=== PATIENT | female | born 1990 | race Caucasian/White ===

== ENCOUNTER 2016-04-23 18:10 | Emergency (ER) ==
[2016-04-23 18:14] VITALS: BP 150/86; TEMP 98.5; BMI 30.2
[2016-04-23] MEDS ORDERED: FLUORETS OP ONE (18:18)
[2016-04-23] MEDS ORDERED: EYE-STREAM OP ONE (18:18)
[2016-04-23] MEDS ORDERED: TETRACAINE 0.5% UNIT-DOSE OP ONE (18:18)
[2016-04-23] MEDS ORDERED: GENTAK OPTH OINT OP STA (18:23)
[2016-04-23] MEDS ORDERED: NORCO 5-325 PO STA (18:26)
--- NOTE | 2016-04-23 18:26 | ED.PDOC ---
General ED Provider: Dr. BIRD PAINTER-ER Chief Complaint: Eye Problem Stated Complaint: i got poked in the eye Time Seen by Physician: 18:15 Mode of Arrival: Walk-In Information Source: Patient Exam Limitations: No limitations Primary Care Provider: NOE LYNN Nursing and Triage Documentation Reviewed and Agree: Yes EENT Complaint Exam - Eye Complaint/Exam Onset/Duration: 2 hrs Symptoms Are: Still present Timing: Constant Initial Severity: Mild Current Severity: Mild Location: Discreet, Right Character: Reports: Dull, Throbbing Aggravating: Reports: Blinking Alleviating: Reports: None Associated Signs and Symptoms: Reports: Photophobia, Clear drainage. Denies: Purulent drainage, Vision impairment, Fever, Swelling Eye Surgical History: Reports: None Penetrating Injury Risk Factors: None Globe Rupture Risk Factors: None Acute Glaucoma Risk Factors: None Optic Artery Occlusion Risk Factors: None Visual Acuity Right Eye: 20/20 Visual Acuity Left Eye: 20/25 Visual Field: Normal Extraocular Movement: Normal Orbit Findings: Normal Globe Findings: Intact Lid Findings: Normal Corneal Findings: Clear Fluorescein Uptake: Yes Fundi: Normal Slit Lamp Used: No Differential Diagnoses: Corneal Abrasion Review of Systems - Review Of Systems Constitutional: Reports: No symptoms Eyes: Reports: Pain, Photophobia Ears, Nose, Mouth, Throat: Reports: No symptoms Respiratory: Reports: No symptoms Cardiac: Reports: No symptoms GI: Reports: No symptoms : Reports: No symptoms Musculoskeletal: Reports: No symptoms Skin: Reports: No symptoms Neurological: Reports: No symptoms Endocrine: Reports: No symptoms Hematologic/Lymphatic: Reports: No symptoms All Other Systems: Reviewed and Negative Past Medical History - Past Medical History Endocrine: Reports: Unknown Cardiovascular: Reports: Unknown Respiratory: Reports: Unknown Hematological: Reports: Unknown Gastrointestinal: Reports: Unknown Genitourinary: Reports: Unknown Neuro/Psych: Reports: Unknown Musculoskeletal: Reports: Unknown Cancer: Reports: Unknown Last Menstrual Period: 04/08/16 - Surgical History General Surgical History: Reports: Unknown - Family History Family History: Reports: Unknown - Social History Smoking Status: Never smoker Hx Substance Use: No Alcohol Screening: None Physical Exam - Physical Exam Appearance: Well-appearing, No pain distress, Well-nourished Pain Distress: Mild Eyes: APOLONIA, EOMI, Conjunctiva inflammed ENT: Ears normal, Nose normal, Oropharynx normal Neck: Supple Respiratory: Airway patent Cardiovascular: RRR, Pulses normal, No rub, No murmur GI/: Soft, Nontender, No masses, Bowel sounds normal, No Organomegaly Musculoskeletal: Normal strength Skin: Warm, Dry, Normal color Neurological: Sensation intact, Motor intact, Reflexes intact, Cranial nerves intact, Alert, Oriented Psychiatric: Affect appropriate, Mood appropriate Procedures - Eye Procedure Tetracaine Drops Administered: Yes Depth: Superficial (corneal abrasion noted) Foreign Body Completely Removed: No Eye Irrigated: Yes Critical Care Note - Critical Care Note Total Time (mins): 0 Course - Course Orders, Labs, Meds: Orders Category Date Time Status Eye Irrigation [ED EYE IRRIGATION] .ONCE EMERGENCY 04/23/16 18:23 Active Eye [ED EYE PATCH] .ONCE EMERGENCY 04/23/16 18:23 Active Balanced Salt Solution [Eye-Stream] MEDS 04/23/16 18:18 Discontinued 1 bottle OP .STK-MED ONE Fluorescein Sodium [Fluorets] MEDS 04/23/16 18:18 Discontinued 1 strip OP .STK-MED ONE Gentamicin Sulfate [Gentak Opth Oint] MEDS 04/23/16 18:23 Discontinued 1 applic OP ONCE STA Tetracaine HCl/Pf [Tetracaine 0.5% Unit-Dose] MEDS 04/23/16 18:18 Discontinued 1 drop OP .STK-MED ONE Medications Discontinued Medications Generic Name Dose Route Start Last Admin Trade Name Freq PRN Reason Stop Dose Admin Gentamicin Sulfate 1 applic 04/23/16 18:23 Gentak Opth Oint OP 04/23/16 18:24 ONCE STA Vital Signs: Temp Pulse Resp BP Pulse Ox 04/23/16 18:11 98.5 F 76 16 150/86 H 98 Departure - Departure Time of Disposition: 18:28 Disposition: HOME SELF-CARE Discharge Problem: Corneal abrasion Qualifiers: Encounter type: initial encounter Laterality: right Qualifier Code: (S05.01XA) Injury of conjunctiva and corneal abrasion without foreign body, right eye, initial encounter Instructions: Corneal Abrasion (ED) Condition: Good Pt referred to PMD for follow-up: Yes Additional Instructions: keep patch on--re--apply ointment in am and re--apply the patch--norco 5mg q 4hrs prn pain #6--f/u with eye doctor tomorrow to recheck the eye Allergies/Adverse Reactions: Allergies No Known Allergies Allergy (Unverified 04/23/16 18:13) Home Medications: Ambulatory Orders 1 [Unobtainable] 04/23/16 Disposition Discussed With: Patient, Family
== END 2016-04-23 18:49 | disposition home or self-care (01) ==
LOC: ED 18:10
DX: S05.01XA Injury of conjunctiva and corneal abrasion without foreign body, right eye, initial encounter (principal); W50.0XXA Accidental hit or strike by another person, initial encounter
CPT/HCPCS: 99283